=== PATIENT | male | born 1940 | race Caucasian/White ===

== ENCOUNTER → 2019-09-23 | Outpatient (CLI) | payer MEDICARE ==
[~2019-09-23] MED LIST: ASPI-555 PO; BENA1TAB18 PO; CALC1TAB36 PO; CARV6.25 PO; FINA5TAB41 PO; GLIM4TAB36 PO; LOVA20TA3 PO; METF-446 PO; RANI150C4 PO; TERA5CAP4 PO
== END | disposition home or self-care (01) ==
LOC: SHCH 10:00
PROVIDERS: ATTEND Internal Medicine Cardiovascular Disease
DX: I71.4 Abdominal aortic aneurysm, without rupture (principal)
CPT/HCPCS: 93978